=== PATIENT | female | born 1930 | race Caucasian/White ===

== ENCOUNTER → 2016-12-14 | Outpatient (CLI) | payer MEDICARE, OTHER ==
--- NOTE | 2016-12-15 14:26 | CR ---
EXAM DATE: 12/14/16 PATIENT'S AGE: 86 Patient: ASHLEY GARCIA Facility: [facility], [place] Site . Site : [id number] Study: XRay Knee Right [id number]/26/2017 9:44:19 AM Ordering Physician: Duane Ortega Final Report: HISTORY: Osteoarthritis. Findings: Standing AP and PA views of both knees were obtained left lateral sunrise views of the right knee. There is moderate to marked decrease in the medial joint space of the left knee with spurring of the left medial femoral condyle and medial tibial plateau. There is moderate to marked decrease in the medial joint space of the right knee with spurring of the right medial femoral condyle and right medial tibial plateau. The right patellofemoral joint space is preserved. No joint effusion is seen. Impression: Moderate to marked decrease in the medial joint spaces of both knees with spurring of the medial femoral condyles and medial tibial plateaus. Dictated by Lily Kirkland MD @ Dec 15 2016 12:19AM (Electronic Signature) Report Signed by Proxy. MARIO
== END ==
LOC: MW.CHORTHO 07:46
PROVIDERS: ATTEND Orthopaedic Surgery
DX: M17.0 Bilateral primary osteoarthritis of knee (principal); M17.11 Unilateral primary osteoarthritis, right knee
CPT/HCPCS: 20610; 73564-26-RT; 73564-RT; 99204; J1040